=== PATIENT | male | born 1995 | race Hispanic/Latino ===

== ENCOUNTER 2016-02-18 02:17 | Emergency (ER) | payer OTHER ==
[~2016-02-18] VITALS: Ht 175.3 cm; Wt 125.2 kg
[~2016-02-18 02:17] MED LIST: MOTRIN800 MG PO; NORCO 7.5/321 TABLET PO
[2016-02-18 03:01] LABS: ADD MIUA? NO; BILIRUBIN NEGATIVE; BLOOD NEGATIVE; COLOR YELLOW ((YELLOW)); GLUCOSE (STRIP) NEGATIVE; KETONES NEGATIVE; LEUKOCYTES NEGATIVE; NITRITE NEGATIVE; PROTEIN (STRIP) 30; SPECIFIC GRAVITY 1.028 (1.000-1.030); UCUL ADDED? NO
[2016-02-18 03:01] LABS: MCHC 34.9 G/DL (30.0-36.0); MEAN PLAT.VOLUME 10.3 uM^3 (9.0-12.4); PLATELET COUNT 259 K/uL (156-360); RBC DIS.WIDTH-SD 39.1 % (39-53); RED BLOOD COUNT 5.42 M/uL (4.00-5.50); WHITE BLOOD COUNT 10.4 K/uL (4.1-10.2)
[2016-02-18 03:10] LABS: CHLORIDE 107 mEq/L (99-109); POTASSIUM 3.9 mEq/L (3.7-5.4); SODIUM 139 mEq/L (136-147)
[2016-02-18 03:12] LABS: GLUCOSE 98 mg/dL (70-99)
[2016-02-18 03:13] LABS: ANION GAP 12 MEQ/L (2-14)
[2016-02-18 03:14] LABS: TOTAL BILIRUBIN 0.5 mg/dL (0.0-1.0)
[2016-02-18 03:15] LABS: ALKALINE PHOSPHATASE 94 IU/L (3-129)
[2016-02-18 03:16] LABS: GFR ESTIMATE (CALCULATED) > 59 mL/min/
[2016-02-18 03:17] LABS: UREA NITROGEN (BUN) 14 mg/dL (9-23)
[2016-02-18 03:19] LABS: LIPASE 19 U/L (1.0-51.0)
[2016-02-18 05:19] VITALS: BP 135/75
== END 2016-02-18 05:21 | disposition home or self-care (01) ==
LOC: EME 02:17
DX: R10.11 Right upper quadrant pain (principal); K76.0 Fatty (change of) liver, not elsewhere classified; R74.8 Abnormal levels of other serum enzymes
CPT/HCPCS: 71020; 74177; 80053; 81003; 83690; 85027; 99281; 99285; J1885; J2405; J7030

== ENCOUNTER 2016-05-07 00:07 | Emergency (ER) | payer OTHER ==
[~2016-05-07] VITALS: Ht 172.7 cm; Wt 128.2 kg
[2016-05-07 02:58] VITALS: BP 138/71
== END 2016-05-07 03:02 | disposition home or self-care (01) ==
LOC: EME 00:07
DX: S90.02XA Contusion of left ankle, initial encounter (principal); S93.402A Sprain of unspecified ligament of left ankle, initial encounter; S60.511A Abrasion of right hand, initial encounter; S80.211A Abrasion, right knee, initial encounter; W13.8XXA Fall from, out of or through other building or structure, initial encounter
CPT/HCPCS: 73130; 73564; 73590; 73610; 99281; 99283

== ENCOUNTER 2016-05-14 16:09 | Emergency (ER) | payer OTHER ==
[~2016-05-14] VITALS: Ht 172.7 cm; Wt 124.7 kg
[2016-05-14] MEDS ORDERED: TRAMADOL HCL50 MG PO (18:41)
[2016-05-14] MEDS ORDERED: CLEOCIN300 MG PO (18:41)
[2016-05-14] MEDS ORDERED: NAPROSYN500 MG PO (18:41)
[2016-05-14 18:59] VITALS: BP 143/89
== END 2016-05-14 19:02 | disposition home or self-care (01) ==
LOC: EME 16:09
DX: L03.116 Cellulitis of left lower limb (principal); W10.9XXD Fall (on) (from) unspecified stairs and steps, subsequent encounter
CPT/HCPCS: 93971; 99281; 99284; J3010

== ENCOUNTER 2017-03-23 20:09 | Emergency (ER) | payer OTHER ==
[~2017-03-23] VITALS: Ht 175.3 cm; Wt 131.0 kg
[~2017-03-23 20:09] MED LIST changes: +CLEOCIN300 MG PO; +NAPROSYN500 MG PO; +TRAMADOL HCL50 MG PO
[2017-03-23 21:03] VITALS: BP 141/88
== END 2017-03-23 22:30 | disposition left against medical advice (07) ==
LOC: EME 20:09
DX: K13.70 Unspecified lesions of oral mucosa (principal); R23.4 Changes in skin texture; Z53.21 Procedure and treatment not carried out due to patient leaving prior to being seen by health care provider